=== PATIENT | male | born 1970 | race Caucasian/White ===

== ENCOUNTER → 2017-05-03 10:08 | Outpatient (REF) | payer OTHER, SELFPAY | LOC: LAB 10:08 ==

== ENCOUNTER → 2020-04-09 13:34 | Outpatient (CLI) | payer BC, SELFPAY ==
[2020-04-09 15:27] LABS: Coronavirus 19 IgG Antibody Negative (Negative); Coronavirus 19 IgM Antibody Negative (Negative)
== END ==
PROVIDERS: Visit Provider Otolaryngology
DX: Z01.818 Encounter for other preprocedural examination (principal)
CPT/HCPCS: 36415; 86328

== ENCOUNTER 2020-04-11 08:13 | Day surgery (SDC) | payer BC, SELFPAY ==
[2020-04-09 08:37] VITALS: BMI 22.9
[2020-04-11 09:01] VITALS: BP 126/77; PULSE 41; RESP 16; TEMP 36.5; O2SAT 100
--- NOTE | 2020-04-11 10:22 | P.PN_ITS ---
[facility] Anesthesia Checklist - Structural Data Admitted From: Home Planned Operative Procedure/s: excision neoplasm r neck Consent for Planned Operative Procedure(s) Verified: Yes - Additional verifications Anesthesia Reactions: No Hx Blood Transfusions: No Blood Transfusion Reaction: No - Airway Assessment C-Spine Mobility Assessed: Yes TMJ Mobility Assessed: Yes Dentition: Good Dentition - Neurological Assessment Level of Consciousness: Awake, Alert, Appropriate - Anesthesia Plan Anesthesia Risk discussed: Yes Anesthesia Plan: Verified ASA Class: I Anesthesia Type: MAC [facility] History I have reviewed the patient's past medical history: Yes Medical History: Denies:: Cancer, Diabetes Mellitus Type 1, Diabetes Mellitus Type 2, Internal Pacemaker, MRSA, Seizures *Have you ever received a pneumonia vaccine?: No *Have you received a flu vaccine this season?: Yes Other Medical History: Denies: Blood Transfusion Reaction Anesthesia experience/problems:: none Other Surgeries: Yes: Other. No: Pacemaker Amputation: No Fractures: No - *Social History Last grade of school completed: Advanced degree Smoking Status: Never smoker Alcohol Intake: never Substance Use Type: denies use *Occupational Status:: employed Housing: house Household Members: spouse, family *Travel in the last 8 weeks: None Family Hx:: No significant family history
[2020-04-11 10:30] VITALS: BP 104/60; PULSE 50; RESP 18; TEMP 36.4; O2SAT 99
--- NOTE | 2020-04-11 10:31 | P.OP_ITS ---
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 The perilesional area was infiltrated with 4 cc of 2% lidocaine containing epinephrine, the lesion measured 2 to 2.5 cm the zackery out was incised and the lesion was excised with surrounding skin well into the subcutaneous layer. Bleeding was stopped with bipolar cautery blood loss was 5 cc. A simple repair was done with interrupted 5-0 nylon sutures and a Dermabond dressing was applied. A dot dressing was applied as well and the patient was sent to recovery in good general condition. Condition: stable Disposition: PACU Complications:: none
[2020-04-11 10:45] VITALS: BP 111/68; PULSE 44; RESP 18; O2SAT 100
[2020-04-11 11:00] VITALS: BP 117/70; PULSE 45; RESP 18; O2SAT 100
== END 2020-04-11 11:00 | disposition home or self-care (01) ==
PROVIDERS: PCP Family Medicine; Visit Provider Otolaryngology
PROC: (CPT 11423; principal; 2020-04-11 10:00)
DX: L72.0 Epidermal cyst (principal)
CPT/HCPCS: 11423; 96374; 96375

== ENCOUNTER → 2021-01-10 12:31 | Outpatient (CLI) | payer BC, SELFPAY | PROVIDERS: PCP Family Medicine; Visit Provider Nurse Practitioner | DX: Z20.822 Contact with and (suspected) exposure to COVID-19 (principal) | CPT/HCPCS: C9803; U0003; U0005 ==